=== PATIENT | female | born 1990 | race Caucasian/White ===

== ENCOUNTER 2016-03-24 01:24 | Emergency (ER) | payer SELFPAY ==
[~2016-03-24] VITALS: Ht 160 cm; Wt 79.5 kg
[2016-03-24 01:28] VITALS: Ht 160 cm; Wt 79.5 kg
== END 2016-03-24 03:12 | disposition left against medical advice (07) ==
LOC: FTE 01:24
DX: Z53.21 Procedure and treatment not carried out due to patient leaving prior to being seen by health care provider (principal)
CPT/HCPCS: 93005

== ENCOUNTER 2017-08-02 12:36 | Emergency (ER) | END 2017-08-02 15:31 | disposition home or self-care (01) ==